=== PATIENT | female | born 1940 | race Caucasian/White ===

== ENCOUNTER 2017-04-03 09:52 | Emergency (ER) | payer OTHER ==
[~2017-04-03] VITALS: Ht 157.5 cm; Wt 79.0 kg
[2017-04-03 13:46] LABS: HEMATOCRIT 40.7 % (34.6-47.8); HEMOGLOBIN 13.4 g/dL (11.7-16.4); WHITE BLOOD COUNT 9.1 x10^3/uL (3.4-10)
[2017-04-03 13:55] LABS: ASPARTATE AMINO TRANSFERASE 19 U/L (15-37); BLOOD UREA NITROGEN 17 mg/dL (7-18)
[2017-04-03 14:26] VITALS: BP 154/66
== END 2017-04-03 14:28 | disposition home or self-care (01) ==
LOC: ED 13:55
DX: I82.491 Acute embolism and thrombosis of other specified deep vein of right lower extremity (principal); I10 Essential (primary) hypertension; G40.909 Epilepsy, unspecified, not intractable, without status epilepticus; E78.5 Hyperlipidemia, unspecified
CPT/HCPCS: 36415; 80053; 85025; 93922; 93970; 99285

== ENCOUNTER → 2017-06-21 | Outpatient (CLI) | payer OTHER ==
[~2017-06-21] MED LIST: APIX5TAB PO; ASPI-496 PO; FURO-92 PO; LAMO25TA PO; LEVE500T13 PO; LOSA50TA6 PO; PROP160C PO
== END | disposition home or self-care (01) ==
LOC: STAR 09:44
PROVIDERS: ATTEND Surgery
DX: Z01.818 Encounter for other preprocedural examination (principal); I72.4 Aneurysm of artery of lower extremity
CPT/HCPCS: 93005